=== PATIENT | male | born 1980 | race African-American/Black ===

== ENCOUNTER 2025-04-06 11:36 | Emergency (ER) | payer OTHER, SELFPAY ==
[2025-04-06] VITALS (25 sets, daily range): BP systolic 99–130; BP diastolic 68–86; PULSE 89–214; RESP 15–27; TEMP 36.6; O2SAT 94–100
[2025-04-06] MEDS: ADENOSINE 6 MG/2ML INJ IVP (11:50)
[2025-04-06] MEDS: ADENOSINE 6 MG/2ML INJ 12 MG IVP (11:57)
--- NOTE | 2025-04-06 11:59 | ED.GENADULT ---
HPI - General Adult General Chief complaint: Chest Pain Stated complaint: Cardiac symptoms Time Seen by Provider: 04/06/25 11:49 History of Present Illness HPI narrative: This 45-year-old male comes in with rapid heart rate. He feels some lightheadedness and chest discomfort. These symptoms started within the last hour. He states that he has had rapid heart rate like this in the past. Related Data Previous Rx's ?Medication ?Instructions ?Recorded metoprolol succinate 25 mg 25 mg PO DAILY #20 tabs 04/06/25 tablet,extended release 24 hr Allergies Allergy/AdvReac Type Severity Reaction Status Date / Time No Known Drug Allergies Allergy Verified 04/06/25 12:09 Review of Systems Status of ROS: Reports: 10 or more systems reviewed and unremarkable except as noted in History and below Narrative: Constitutional: No fevers, no weight gain or loss. Eyes: No discharge. No vision changes. HENT: No congestion, no sore throat, no ear pain. Cardiovascular: No palpitations. Respiratory: No shortness of breath, no wheezes, no cough. Gastrointestinal: No abdominal pain, no vomiting, no diarrhea. Genitourinary: No dysuria, no hematuria. Musculoskeletal: Normal range of motion. Skin: No rashes, no pruritis. Neurological: No weakness, sensory change, speech change. Endo/Heme/Allergies: No bruising or bleeding. No polydipsia. Pysch: no suicidality, no anxiety, no insomnia. All other systems reviewed and are negative. Exam Narrative: Exam Narrative: Constitutional: Well-developed, well-nourished, no acute distress. HEENT: Normocephalic, atraumatic. Neck: Normal range of motion. Nontender. Supple. Heart: Regular. No murmurs. Tachycardia. Intact distal pulses. Lungs: Clear to auscultation. No chest discomfort. No wheezes, rhonchi, or rales. Abdomen: Normal bowel sounds. Nontender. No rebound tenderness. Genitalia: Deferred. Back: No midline tenderness. Normal range of motion. Extremities: Normal range of motion. No injury. Skin: Intact. No rash. Warm. No erythema or pallor. Neurologic: No altered sensation. No weakness. Alert and oriented. Psychiatric: No suicidality. No anxiety or depression. No insomnia. Nursing notes and vitals signs are reviewed. Const: Vital Signs, click to edit/add: Vital Signs - 24 hr 04/06/25 12:04 Temperature 98 F Pulse Rate [Right Pulse Oximeter] 214 H Respiratory Rate 22 Blood Pressure [Ri ght Upper Arm] 99/68 Pulse Oximetry 98 Oxygen Delivery Me thod Room Air Course Vital Signs Vital signs: Initial Vital Signs Respiratory Effort Spontaneous, Tachypnea 04/06/25 11:45 Respiratory Depth Normal 04/06/25 11:45 Respiratory Pattern Tachypnea 04/06/25 11:45 Vital Signs Temperature 98 F 04/06/25 12:04 Pulse Rate 214 H 04/06/25 12:04 Respiratory Rate 22 04/06/25 12:04 Blood Pressure 99/68 04/06/25 12:04 Pulse Oximetry 98 04/06/25 12:04 Oxygen Delivery Method Room Air 04/06/25 12:04 Temperature 98 F 04/06/25 12:04 Pulse Rate 214 H 04/06/25 12:04 Respiratory Rate 22 04/06/25 12:04 Blood Pressure 99/68 04/06/25 12:04 Pulse Oximetry 98 04/06/25 12:04 Oxygen Delivery Method Room Air 04/06/25 12:04 Medications Administered Medications: Discontinued Medications Generic Name Dose Route Start Last Admin Trade Name Freq PRN Reason Stop Dose Admin Adenosine 6 mg 04/06/25 11:49 04/06/25 11:50 Adenosine 6 Mg/2ml Inj IVP 04/06/25 11:50 6 mg ONCE ONE Administration Adenosine 12 mg 04/06/25 11:54 04/06/25 11:57 Adenosine 6 Mg/2ml Inj IVP 04/06/25 11:55 12 mg ONCE ONE Administration Sodium Chloride 1,000 mls @ 1,000 mls/hr 04/06/25 12:00 04/06/25 11:50 0.9 % Sodium Chloride 1000 Ml IV 04/06/25 12:59 1,000 mls/hr .Q1H TJ Administration Medical Decision Making MDM Narrative Medical decision making narrative: This patient arrives with supraventricular tachycardia in the rate at 190 beats per minute. He was maintaining sufficient vital signs otherwise. He states that he has had symptoms like this in the past. An IV was established and the patient received 6 mg of Adenocard which did not bring correction of his rhythm. He then received 12 mg and this brought him back into normal sinus rhythm. Labs are acquired and these returned with reassuring results. His troponin is 0. His glucose is elevated at around 300. The patient does state that he gets frequent episodes like this that do not last so long. He does often try a Valsalva maneuver. I did prescribe metoprolol succinate 25 mg which he can try in an attempt to obtain down his episodes of tachycardia. He understands that this will lower his blood pressure a bit. I advised him to follow-up with his primary physician. Lab Data Labs: Lab Results 04/06/25 04/06/25 Range/Units 11:47 11:50 WBC 6.14 (4.50-11.00) K/uL RBC 4.95 (4.30-5.90) m/uL Hgb 15.7 (13.5-17.5) gm/dL Hct 45.8 (37.0-53.0) % MCV 93 (80-100) fL MCH 32 (26-34) pg MCHC 34 (32-36) gm/dL RDW Coeff of Perla 12.1 (11.5-15.5) % Plt Count 269 (140-440) K/uL Neut % (Auto) 54.9 (42.0-72.0) % Lymph % (Auto) 33.2 (20-44) % Greenlee % (Auto) 8.6 (0.0-11.0) % Eos % (Auto) 2.1 (0.0-7.0) % Baso % (Auto) 0.5 (0.0-3.0) % Neut # (Auto) 3.37 (1.7-7.0) K/uL Lymph # (Auto) 2.04 (0.90-2.90) K/uL Greenlee # (Auto) 0.50 (0.00-0.90) K/UL Eos # (Auto) 0.13 (0.00-0.50) K/uL Baso # (Auto) 0.03 (0.00-0.30) K/uL Abs Immat Gran (auto) 0.04 (0.00-0.30) K/uL Imm/Tot Granulo (auto) 0.7 % Sodium 134 L (135-149) mmol/L Potassium 3.6 (3.6-5.1) mmol/L Chloride 98 (96-114) mmol/L Carbon Dioxide 22 (20-32) mmol/L Anion Gap 14 (7-15) mEq/L BUN 12 (5-24) mg/dL Creatinine 1.0 (0.5-1.5) mg/dL Estimated GFR 96 ml/min Glucose 303 H (60-115) mg/dL Calcium 9.6 (8.4-10.6) mg/dL Magnesium 1.8 (1.5-2.6) mg/dL POC Troponin I 0.00 L (0.01-0.04) ng/ml ECG Data Attestation: I personally reviewed and interpreted this ECG as follows: Interpretation: Supraventricular tachycardia, rate 190 beats per minute. Repeat EKG shows normal sinus rhythm. Rate is 97 beats per minute. There are no specific ST or T-wave abnormalities. Discharge Plan Discharge Clinical Impression: Supraventricular tachycardia Patient Disposition: Home, Self-Care Condition: Improved Additional Instructions: Take medication as prescribed. Follow up with primary physician for ongoing management. Return if symptoms are recurrent or worsening. Prescriptions: New metoprolol succinate 25 mg tablet extended release 24 hr 25 mg PO DAILY Qty: 20 2RF Follow Up/Referrals: Provider,Not a Local [Primary Care Provider, Family Practice] Stand Alone Forms: [employer] Info Instructions
[2025-04-06 12:06] LABS: Hematocrit 45.8 % (37.0-53.0); Hemoglobin* 15.7 gm/dL (13.5-17.5); Immature Granulocytes Abs Auto 0.04 K/uL (0.00-0.30); Immature Granulocytes Pct Auto 0.7 %; Lymphocytes Absolute Auto 2.04 K/uL (0.90-2.90); Mean Corpuscular HGB Conc 34 gm/dL (32-36); Mean Corpuscular Hemoglobin 32 pg (26-34); Mean Corpuscular Volume 93 fL (80-100); RDW Coefficient of Variation % 12.1 % (11.5-15.5); Red Blood Count 4.95 m/uL (4.30-5.90); White Blood Count* 6.14 K/uL (4.50-11.00)
[2025-04-06 12:07] LABS: Slide Review Reflex No
[2025-04-06 12:11] LABS: Troponin, Point-of-Care* 0.00 ng/ml (0.01-0.04)
[2025-04-06 12:17] LABS: Chloride* 98 mmol/L (96-114); Potassium* 3.6 mmol/L (3.6-5.1); Sodium* 134 mmol/L (135-149)
[2025-04-06 12:20] LABS: Anion Gap 14 mEq/L (7-15); Blood Urea Nitrogen* 12 mg/dL (5-24); Calcium* 9.6 mg/dL (8.4-10.6); Carbon Dioxide* 22 mmol/L (20-32); Creatinine* 1.0 mg/dL (0.5-1.5); Estimated Glomerular Filt Rate 96 ml/min; Glucose* 303 mg/dL (60-115)
== END 2025-04-06 13:15 | disposition home or self-care (01) ==
PROVIDERS: Emergency Provider Emergency Medicine Emergency Medical Services
DX: I47.10 Supraventricular tachycardia, unspecified (principal)
CPT/HCPCS: 36415; 80048; 82962; 83735; 84484; 85025; 93005; 96374; 96376; 99284; 99291; J0153; J7030